=== PATIENT | female | born 1940 | race Caucasian/White ===

== ENCOUNTER 2021-01-22 13:30 | Emergency (ER) | payer MEDICARE, OTHER ==
[~2021-01-22] VITALS: Ht 167.6 cm; Wt 113.4 kg
[~2021-01-22 13:30] MED LIST: ALLOPURINOL100 MG PO; AMLODIPINE BESY10 MG PO; B COMPLEX1 EACH PO; CELEXA20 MG PO; CHLORTHALIDONE25 MG PO; CITRACAL + D31 EACH PO; CO Q-10400 MG PO; COLESTID 1GM TAB1 GM PO; COLESTID1 GM PO; COZAAR 25MG TAB25 MG PO; OXYBUTYNIN CHLO15 MG PO; PROBIOTIC1 EAC3 PO; SYNTHROID112 MCG PO
[2021-01-22 14:45] LABS: BASOPHIL 0.7 % (0-2); EOSINOPHIL 0.6 % (0-7); HCT 35.9 % (37.0-47.0); HGB 11.5 g/dl (12.5-16.0); LYMPHOCYTE 16.8 % (15-48); MCV 96.8 fL (78.0-100.0); MPV 9.2 fL (6.0-9.5); NEUTROPHIL 72.1 % (41-80); NRBC 0; PLT 300 K/uL (150-400); RBC 3.71 M/uL (4.20-5.40); RDW 16.2 % (11.5-14.0); WBC 12.8 K/uL (4.0-10.5)
[2021-01-22 15:39] LABS: BILIRUBIN NEGATIVE (NEGATIVE); BLOOD NEGATIVE Ery/uL (NEGATIVE); CLARITY CLEAR (CLEAR); COLOR YELLOW (YELLOW); GLUCOSE (U) NORMAL (NORMAL); LEUKOCYTES NEGATIVE Leu/uL (NEGATIVE); NITRITE NEGATIVE (NEGATIVE); PROTEIN NEGATIVE (NEGATIVE); UROBILINOGEN 0.2 mg/dL (0.2-1.0)
[2021-01-22 15:42] LABS: ALBUMIN 3.9 g/dL (3.4-5.0); BILIRUBIN - TOTAL 0.4 mg/dL (0.2-1.0); BUN/CREAT RATIO (CALC) 18.3 RATIO; CREATININE 1.09 mg/dL (0.51-0.95); POTASSIUM 3.1 mmol/L (3.5-5.1); TOTAL PROTEIN 6.9 g/dL (6.4-8.2)
== END 2021-01-22 16:40 | disposition home or self-care (01) ==
LOC: FER 13:30
PROVIDERS: Emergency Medicine
DX: E87.1 Hypo-osmolality and hyponatremia (principal); R06.02 Shortness of breath; I25.10 Atherosclerotic heart disease of native coronary artery without angina pectoris; Z79.899 Other long term (current) drug therapy
CPT/HCPCS: 36415; 71046; 80053; 81003; 83880; 84443; 84484; 85025; 93005